=== PATIENT | male | born 1970 | race Caucasian/White ===

== ENCOUNTER 2024-03-02 05:50 | Inpatient (IN) | payer MEDICAID ==
[2024-02-28 10:14] LABS: BASOPHILS % (AUTO) 0.4 % (0-1); EOSINOPHILS # (AUTO) 0.4 X10'3 (0-0.9); EOSINOPHILS % (AUTO) 4.6 % (0-6); LYMPHOCYTES # (AUTO) 1.8 X10'3 (1.1-4.8); LYMPHOCYTES % (AUTO) 22.1 % (21-51); MEAN CORPUSCULAR HEMOGLOBIN 28.4 PG (27.0-31.0); MEAN CORPUSCULAR HGB CONC 33.5 g/dL (33.0-36.5); MEAN CORPUSCULAR VOLUME 84.9 FL (78-98); MEAN PLATELET VOLUME 6.7 FL (7.4-10.4); MONOCYTES # (AUTO) 0.7 X10'3 (0-0.9); MONOCYTES % (AUTO) 8.4 % (2-12); NEUTROPHILS # (AUTO) 5.1 X10'3 (1.8-7.7); NEUTROPHILS % (AUTO) 64.5 % (42-75); PRE OP HEMATOCRIT 44.4 % (42.0-52.0); PRE OP HEMOGLOBIN 14.9 g/dL (14.0-17.9); PRE OP PLATELET COUNT 294 X10'3 (140-440); RED BLOOD COUNT 5.23 X10'6 (4.70-6.10); RED CELL DISTRIBUTION WIDTH 15.9 % (11.5-14.5)
[2024-02-28 10:49] LABS: ALBUMIN 3.9 G/DL (3.4-5.0); ALKALINE PHOSPHATASE 77 IU/L (46-116); BLOOD UREA NITROGEN 20 MG/DL (7-18); BUN/CREATININE RATIO 17.9 (10.0-20.0); CALCIUM 9.3 MG/DL (8.5-10.1); CHLORIDE 105 MMOL/L (99-107); CREATININE 1.12 MG/DL (0.60-1.10); PRE OP ALT 29 U/L (30-65); PRE OP ANION GAP 8 (8-16); PRE OP AST 16 U/L (10-37); PRE OP BILIRUB, TOTAL 0.6 MG/DL (0.0-1.0); PRE OP GLUCOSE 101 MG/DL (70-104); PRE OP POTASSIUM 3.9 MMOL/L (3.4-5.1); PRE OP SODIUM 143 MMOL/L (135-145); TOTAL PROTEIN 7.8 G/DL (6.4-8.2); eGFR 69 ML/MIN
[2024-03-02] VITALS (26 sets, daily range): BP systolic 98–149; BP diastolic 54–81; PULSE 62–81; RESP 13–20; TEMP 97.6–98.9; O2SAT 63–97
[~2024-03-02] VITALS: Ht 182.9 cm; Wt 140.1 kg
[2024-03-02] MEDS: Cefazolin 3 GM/100ML NS IVPB 100 ML IV ONE (05:30)
[~2024-03-02 05:50] MED LIST: CETI10TA14 PO; DILT-94 PO; FLUT16SP26 BOTHNARES; HYDR50TA46 PO; KETO10DR3 EACHEYE; LOSA100T58 PO; MONT-40 PO; SEMA0.253 SQ
[2024-03-02] MEDS: famotidine 20mg tablet PO ONE (06:40)
[2024-03-02] MEDS: ringers solution, lacted 1,000 ML IV SCH ×2 (06:40→07:30)
[2024-03-02] MEDS ORDERED: LIDOcaine 1% (10mg/ml)w/preservative inj. 20ml MDV ONE (06:53)
[2024-03-02] MEDS ORDERED: BUPIVAcaine/PF 2.5mg/ml (0.25%) 10ml vial ONE (06:53)
[2024-03-02] MEDS ORDERED: fentaNYL /PF 50mcg/ml 5ml ampule ONE (07:20)
[2024-03-02] MEDS ORDERED: ondansetron/PF 4mg/2ml inj ONE (07:20)
[2024-03-02] MEDS ORDERED: propofol inj 20 ML IV ONE ×2 (07:20→07:21)
[2024-03-02] MEDS ORDERED: midazolam 1 mg/ML 2ml injection ONE (07:20)
[2024-03-02] MEDS ORDERED: rocuronium 10mg/ml inj IV ONE ×2 (07:21)
[2024-03-02] MEDS ORDERED: dexamethasone sod phosphate 4mg/ml inj. ONE (07:21)
[2024-03-02] MEDS ORDERED: LIDOcaine 2% (20mg/ml) 5ml vial ONE (07:21)
[2024-03-02] MEDS ORDERED: desflurane 240ml liquid inh. IH ONE (07:25)
[2024-03-02] MEDS ORDERED: hydrALAZINE 20mg/ml inj. IV PRN (07:30)
[2024-03-02] MEDS ORDERED: morphine 2 MG/ML inj. syringe IV PRN (07:30)
[2024-03-02] MEDS ORDERED: ondansetron/PF 4mg/2ml inj IV PRN ×2 (07:30→10:20)
[2024-03-02] MEDS ORDERED: morphine 4 MG/ML inj SYRINge IV PRN (07:30)
[2024-03-02] MEDS ORDERED: labetalol 20mg/4ml (5mg/ml) syringe IV PRN (07:30)
[2024-03-02] MEDS ORDERED: fentaNYL/PF 50MCG/1 ML 2ML syringe IV PRN (07:30)
[2024-03-02] MEDS ORDERED: labetalol 20mg/4ml (5mg/ml) syringe IV ONE (07:38)
[2024-03-02] MEDS ORDERED: acetaminophen 1,000mg/100ml IV 100 ML IV ONE (07:41)
[2024-03-02] MEDS ORDERED: BUPIVAcaine 2.5mg/ml inj 50ml vial (contains preservative) ONE (07:57)
[2024-03-02] MEDS ORDERED: BUPIVACAINE liposomal/PF 13.3 MG/ML vial IM ONE (07:57)
[2024-03-02] MEDS ORDERED: sugammadex 200mg/2ml injection IV ONE (08:48)
[2024-03-02] MEDS: potassium CL 20mEq in D5-1/2NS 1,000 ML IV SCH (10:20)
[2024-03-02] MEDS: fentaNYL/PF 50MCG/1 ML 2ML syringe IV PRN (11:53)
[2024-03-02] MEDS: oxyCODONE/APAP 10/325mg tablet PO PRN (12:24)
[2024-03-02] MEDS: hydrALAZINE 25 MG tablet PO SCH (20:00)
[2024-03-02] MEDS: diltiazem CD 120mg capsule (once-daily) PO SCH (20:00)
[2024-03-02] MEDS: losartan 50mg tablet PO SCH (20:20)
[2024-03-02] MEDS: enoxaparin 30mg/0.3ml syringe SQ SCH (20:21)
[2024-03-02] MEDS: calcium carbonate 500mg chew tablet PO ONE (21:54)
[2024-03-03 02:00] VITALS: BP 109/60; PULSE 64; RESP 64; TEMP 98; O2SAT 94
[2024-03-03 06:00] VITALS: BP 120/72; PULSE 78; RESP 18; TEMP 98.3; O2SAT 92
[2024-03-03] MEDS: cetirizine 10mg tablet PO SCH (08:00)
[2024-03-03] MEDS: montelukast 10mg tablet PO SCH (08:00)
[2024-03-03] MEDS: KETOTIFEN FUMARATE 0.025% EACHEYE SCH (08:00)
[2024-03-03] MEDS: fluticasone nasal spray 16GM bottle NS SCH (08:06)
[2024-03-03 08:16] VITALS: RESP 16; O2SAT 92
[2024-03-03 10:00] VITALS: BP 119/68; PULSE 65; RESP 20; TEMP 98.4; O2SAT 97
[2024-03-03 14:25] VITALS: RESP 16
[2024-03-03] MEDS ORDERED: OXYC1TAB17 PO (15:26)
== END 2024-03-03 15:37 | disposition home or self-care (01) | DRG 227 ==
LOC: PAS IN 05:50 → EDSTATUS 07:30 → SUR 3N 17:36
PROVIDERS: ADMIT Surgery; ATTEND Surgery
PROC: 8E0W4CZ Robotic Assisted Procedure of Trunk Region, Percutaneous Endoscopic Approach (ICD-10-PCS; 2024-03-02)
PROC: 0WUF4JZ Supplement Abdominal Wall with Synthetic Substitute, Percutaneous Endoscopic Approach (ICD-10-PCS; principal; 2024-03-02 07:25)
DX: K43.0 Incisional hernia with obstruction, without gangrene (principal); K42.9 Umbilical hernia without obstruction or gangrene; K66.0 Peritoneal adhesions (postprocedural) (postinfection); Z88.5 Allergy status to narcotic agent
CPT/HCPCS: 36415; 80053; 82948; 85025; 93005; A4215; A4615; A4618; C1781; C9290; G0378; J0131; J0690; J1100; J1650; J2003; J2250; J2405; J2704; J3010; J3490; J7120